=== PATIENT | female | born 1990 | race African-American/Black ===

== ENCOUNTER 2019-08-17 08:41 | Emergency (ER) | payer OTHER, SELFPAY ==
[2019-08-17 08:53] VITALS: BP 121/56; PULSE 111; RESP 16; TEMP 37.8; O2SAT 99
--- NOTE | 2019-08-17 09:22 | ED.URI ---
HPI - URI/Sore Throat General Chief Complaint: Upper Respiratory Infection Stated Complaint: Sore Throat Time Seen by Provider: 08/17/19 09:17 Source: patient and RN notes reviewed Mode of arrival: ambulatory Limitations: no limitations History of Present Illness HPI Narrative: Patient presents today complaining of sore throat and sweats since last night. Denies any additional symptoms to include cough, congestion, rhinorrhea, headache, ear pain, nausea, vomiting, or diarrhea. She currently rates her pain 10/10 and has been taking no medication for symptoms prior to arrival. No known sick exposures. No recent antibiotic use. MD elicited complaint: sore throat Related Data Allergies Allergy/AdvReac Type Severity Reaction Status Date / Time No Known Allergies Allergy Verified 08/17/19 09:19 Review of Systems Review of Systems: Narrative: CONSTITUTIONAL: Denies body aches, fever, chills. + Sweats EYES: Denies visual changes, redness, or discharge. ENT: Denies rhinorrhea, congestion, or otalgia.+ Sore throat CARDIOVASCULAR: Denies chest pain, palpitations, or edema. RESPIRATORY: Denies cough or dyspnea. GASTROINTESTINAL: Denies abdominal pain, nausea, vomiting, or diarrhea. GENITOURINARY: Denies dysuria or hematuria. SKIN: Denies rash, itching, or wounds. MUSCULOSKELETAL: Denies back pain, joint pain, or myalgia. NEUROLOGIC: Denies headache, numbness, tingling, or weakness. PSYCH: Denies depression or anxiety. PMFSH Social History Social History Gender identity (if verbalized by the patient): Female Comments At time of signature, I have reviewed and agree with nursing past medical, surgical, social and family history unless otherwise noted. Please see nursing chart for further information. There is no relevant family history pertinent to the presenting complaint Exam Narrative: Exam Narrative: GENERAL: Mildly ill-appearing, well-nourished, and in no acute distress. HEAD: Normocephalic, atraumatic. EYES: EOMI. No redness or drainage. Conjunctivae normal. ENT: Mucous membranes pink and moist. Nares clear. No rhinorrhea. TMs normal bilaterally. Throat erythematous with mild edema. No exudate. Uvula midline. NECK: Normal AROM. Supple. No lymphadenopathy. CHEST: No respiratory distress. Clear to auscultation. HEART: Regular rate and rhythm. No murmur appreciated. Normal peripheral pulses. EXTREMITIES: Normal range of motion. No edema. SKIN: Warm, dry, no rash. NEURO: No focal deficits. Alert and oriented x3. Gait steady. PSYCH: Normal affect. No signs of depression or anxiety. Course Vital Signs Vital signs: Vital Signs Temperature 100.0 F H 08/17/19 08:53 Pulse Rate 111 H 08/17/19 08:53 Respiratory Rate 16 08/17/19 08:53 Blood Pressure 121/56 L 08/17/19 08:53 Pulse Oximetry 99 08/17/19 08:53 Temperature 100.0 F H 08/17/19 08:53 Pulse Rate 111 H 08/17/19 08:53 Respiratory Rate 16 08/17/19 08:53 Blood Pressure 121/56 L 08/17/19 08:53 Pulse Oximetry 99 08/17/19 08:53 Reviewed. Pt has been instructed to follow up with her PCP regarding her elevated blood pressure today. MDM - URI/Sore Throat Differential Diagnosis Differential diagnosis: Likely upper respiratory infection, otitis media, viral infection, pharyngitis and other (Strep throat) Lab Data Attestation: I reviewed the patient's lab results. Labs: Strep Screen Positive Group A Strep *(Reference Range: Negative)* Critical Care Time Critical Care Time Critical Care Time: No Discharge Plan Discharge Clinical Impression: Strep throat Patient Disposition: Home, Self-Care Condition: Stable Instructions: Antibiotic Form, Strep Throat (DC) Additional Instructions: Your rapid strep screen is positive today. Please take the amoxicillin as prescribed until gone. You will be contagious after starting the antibiotics. Change her toothbrush out after 48 hours. Take Tylenol or
== END 2019-08-17 09:27 | disposition home or self-care (01) ==
PROVIDERS: Emergency Provider Nurse Practitioner
DX: J02.9 Acute pharyngitis, unspecified (principal)
CPT/HCPCS: 87880; 99203; G0463